=== PATIENT | female | born 1995 | race Caucasian/White ===

== ENCOUNTER 2017-10-25 17:49 | Emergency (ER) | payer BC ==
[2017-10-25] MEDS ORDERED: NS 1,000 ML IV ONE (19:55)
[2017-10-25] MEDS ORDERED: ONDANSETRON 4 MG/2 ML VIAL IVP ONE ×2 (19:55→22:03)
--- NOTE | 2017-10-25 19:56 | EDPHY ---
H & P Stated Complaint: abdomonal pain/has period and is passing large clots - Personal History LMP (Females 10-55): Now - Medical/Surgical History Hx Asthma: No Hx Chronic Respiratory Disease: No Hx Diabetes: No Hx Cardiac Disease: No Hx Renal Disease: No Hx Cirrhosis: No Hx Alcoholism: No Hx HIV/AIDS: No Hx Splenectomy or Spleen Trauma: No Other PMH: none reported - Social History Smoking Status: Never smoked Time Seen by Provider: 10/25/17 19:33 HPI/ROS: CHIEF COMPLAINT: Abdominal pain, dysmenorrhea HISTORY OF PRESENT ILLNESS: 22-year-old female history of dysmenorrhea, started menstrual. Yesterday, complaining of intractable suprapubic and lower abdominal pain since this afternoon with passage of large clots and 1 episode of vomiting. No back or flank pain. No fever or chills. No urinary abnormality. PRIMARY CARE PROVIDER: REVIEW OF SYSTEMS: 10 systems reviewed and negative with the exception of the elements mentioned in the history of present illness PAST MEDICAL & SURGICAL HISTORY: Dysmenorrhea SOCIAL HISTORY: Nonsmoker PHYSICAL EXAM (Prior to examination, patient consented to physical exam, hands were washed and my usual and customary physical exam procedures followed) 1) GENERAL: Well-developed, well-nourished, alert and oriented. Appears uncomfortable 2) HEAD: Normocephalic, atraumatic 3) HEENT: Pupils equal, round, reactive to light bilaterally. Sclera anicteric. Nasopharynx, oropharynx, clear, no lesions. Dry mucous membranes. 4) NECK: Full range of motion, no meningeal signs. 5) LUNGS: Clear auscultation bilaterally, no wheezes, no rhonchi, no retractions. 6) HEART: Regular rate and rhythm, no murmur, no heave, no gallop. 7) ABDOMEN: Guarding abdomen, tender to palpation suprapubic and left lower quadrant. Negative McBurney's point pain. Negative Jean sign. 8) MUSCULOSKELETAL: Moving all extremities, no focal areas of tenderness, no obvious trauma. No peripheral edema or discoloration. 9) BACK: No CVA tenderness, no midline vertebral tenderness, no fluctuance, no step-off, no obvious trauma, no visual or palpable abnormality. 10) SKIN: No rash, no petechiae. 11) Psychiatric: Patient is oriented X 3, there is no agitation. DIFFERENTIAL DIAGNOSIS: My differential diagnosis includes, but is not limited to, acute appendicitis, acute cholecystitis, bowel obstruction, acute pancreatitis, ovarian torsion, ectopic , gastritis and urinary tract infection. The patient understands that this diagnosis is provisional and can never be 100% accurate. This is a partial list of diagnoses considered. These considerations are based on history, physical exam, past history and reassessment. (Mini Parada) Constitutional: Initial Vital Signs Temperature (C) 36.7 C 10/25/17 18:01 Heart Rate 73 10/25/17 18:01 Respiratory Rate 18 10/25/17 18:01 Blood Pressure 151/106 H 10/25/17 18:01 O2 Sat (%) 97 10/25/17 18:01 O2 Delivery Mode Room Air Allergies/Adverse Reactions: No Known Allergies Allergy (Unverified 10/25/17 18:01) Home Medications: Medication Instructions Recorded NK [No Known Home Meds] 10/25/17 Medical Decision Making - Diagnostics Imaging Results: Images reviewed myself (Mini Parada) ED Course/Re-evaluation: 7:56 p.m.: Will obtain laboratory studies and diagnostic studies including pelvic ultrasound. I saw this patient independently based on established practice protocols. Care of patient under supervision of secondary supervising physician Dr Graham . 9:50 p.m.: Re-evaluation. Discussed her imaging results showing normal pelvic ultrasound, discussed her other laboratory studies. She is complaining of continued pain left upper quadrant. No splenomegaly on exam. No right upper or right lower quadrant abdominal pain. I Think that acute appendicitis or acute cholecystitis or less than likely in this patient. We discussed possible etiologies and neck steps. Discussed imaging , discussed admission which has offered to the patient She would like to be discharged with a further dose of analgesia. She would like to return to the ER should she develop new or worsening symptoms. I Believe her to have decision-making capacity. (Mini Parada) I did not see this patient while she was in the emergency department. However her care was discussed with the PA while the patient was in the department. I agree with treatment plan and management (Edwin Graham) - Data Points Laboratory Results: Laboratory Results 10/25/17 20:40 10/25/17 20:40 Medications Given: Discontinued Medications Hydrocodone Bitart/Acetaminophen ([place] 5/325mg Prepack#6) 1 btl TAKEHOME EDNOW ONE Stop: 10/25/17 22:06 Last Admin: 10/25/17 22:11 Dose: 1 btl Hydromorphone HCl (Dilaudid) 1 mg IVP EDNOW ONE Stop: 10/25/17 21:58 Last Admin: 10/25/17 22:04 Dose: Not Given Sodium Chloride (Ns) 1,000 mls @ 0 mls/hr IV ONCE ONE PRN Reason: Wide Open Stop: 10/25/17 19:56 Last Admin: 10/25/17 20:13 Dose: 1,000 mls Morphine Sulfate (Morphine) 4 mg IVP EDNOW ONE Stop: 10/25/17 19:56 Last Admin: 10/25/17 20:13 Dose: 4 mg Ondansetron HCl (Zofran) 4 mg IVP EDNOW ONE Stop: 10/25/17 19:56 Last Admin: 10/25/17 20:14 Dose: 4 mg Ondansetron HCl (Zofran Odt) 4 mg PO EDNOW ONE Stop: 10/25/17 21:58 Last Admin: 10/26/17 00:24 Dose: Not Given Ondansetron HCl (Zofran) 4 mg IVP EDNOW ONE Stop: 10/25/17 22:04 Last Admin: 10/25/17 22:05 Dose: Not Given Ondansetron HCl (Zofran Odt 4 Mg Prepack#2) 1 btl TAKEHOME EDNOW ONE Stop: 10/25/17 22:06 Last Admin: 10/25/17 22:11 Dose: 1 btl Departure - Departure Disposition: Home, Routine, Self-Care Clinical Impression: Abdominal pain Condition: Good Instructions: Hydrocodone/Acetaminophen (By mouth), Ondansetron (By mouth), Acute Abdominal Pain (ED) Additional Instructions: Seek immediate medical attention if you develop new or worsening symptoms, if you develop fevers, chills, inability to tolerate oral intake or any other symptoms that concerns you. Referrals: Karin Ribera MD [Primary Care Provider] - 1-2 days without fail Stand Alone Forms: Work Excuse
[2017-10-25 20:57] LABS: PLATELET COUNT 253 10^3/uL (150-400)
[2017-10-25] MEDS ORDERED: ONDANSETRON DISINTEGRATING 4 MG TAB PO ONE (21:57)
[2017-10-25] MEDS ORDERED: HYDROmorphONE/DILAUDID 1 MG/ML INJ IVP ONE (21:57)
[2017-10-25] MEDS ORDERED: ONDANSETRON 4 MG/2 ML VIAL ONE (22:01)
[2017-10-25] MEDS ORDERED: ONDANSETRON 4MG PREPACK#2 BTL TAKEHOME ONE (22:05)
[2017-10-25] MEDS ORDERED: HYDROCOD/APAP 5/325 PREPACK#6 BTL TAKEHOME ONE (22:05)
[2017-10-25 22:16] VITALS: BP 119/76
== END 2017-10-25 22:20 | disposition home or self-care (01) ==
DX: R10.30 Lower abdominal pain, unspecified (principal); N94.6 Dysmenorrhea, unspecified; E86.9 Volume depletion, unspecified
CPT/HCPCS: 96374; J1170; J2270; J2405